=== PATIENT | male | born 1995 | race Caucasian/White ===

== ENCOUNTER 2021-11-11 17:34 | Emergency (ER) | payer OTHER ==
[~2021-11-11] VITALS: Ht 193 cm; Wt 143.2 kg
[2021-11-11 17:55] VITALS: BP 152/82; TEMP 98.9
[2021-11-11] MEDS ORDERED: BACTRIM DS 8001 TAB PO (18:32)
[2021-11-11 18:40] VITALS: PULSE 102
== END 2021-11-11 18:41 | disposition home or self-care (01) ==
LOC: COL.ER 17:34
DX: L02.214 Cutaneous abscess of groin (principal); Z87.891 Personal history of nicotine dependence